=== PATIENT | male | born 1960 | race Caucasian/White ===

== ENCOUNTER 2017-01-01 10:01 | Emergency (ER) | payer MEDICAID, OTHER ==
[~2017-01-01] VITALS: Ht 182.9 cm; Wt 104.3 kg
[2017-01-01] MEDS ORDERED: CITA20TA4 PO (10:16)
[2017-01-01] MEDS ORDERED: ZANTTAB PO (10:16)
[2017-01-01] MEDS ORDERED: OMEP40CA2 PO (10:16)
[2017-01-01] MEDS ORDERED: HYDR25T PO (10:16)
[2017-01-01] MEDS ORDERED: CYCL10TA PO (10:16)
[2017-01-01] MEDS ORDERED: LISI40TAB PO (10:16)
[2017-01-01] MEDS ORDERED: ASPI81TA85 PO (10:16)
[2017-01-01 11:33] LABS: ADD MORPHOLOGY? YES; BASO # 0.1 K/mm3 (0.0-0.2); BASO % 0.8 % (0.0-1.0); EOS # 0.2 K/mm3 (0.0-0.50); EOS % 1.9 % (0.0-3.0); LARGE UNSTAINED CELL # 0.2 K/mm3 (0.0-0.4); LARGE UNSTAINED CELL % 2.4 % (0.0-4.0); LYMPH # 1.4 K/mm3 (1.5-4.5); LYMPH % 15.7 % (24.0-44.0); MEAN CORPUSCULAR HEMOGLOBIN 20.9 pg (27.0-33.0); MEAN CORPUSCULAR HGB CONC 29.7 g/dl (32.0-36.5); MEAN CORPUSCULAR VOLUME 70.3 fl (80.0-96.0); MONO # 0.6 K/mm3 (0.0-0.8); MONO % 6.5 % (0.0-5.0); NEUTROPHILS # 6.3 K/mm3 (1.8-7.7); NEUTROPHILS % 72.8 % (36.0-66.0); PLATELET COUNT, AUTOMATED 369 k/mm3 (150-450); RED CELL DISTRIBUTION WIDTH 16.6 % (11.5-14.5); WHITE BLOOD COUNT 8.7 K/mm3 (4.0-10.0)
--- NOTE | 2017-01-01 11:55 | REP ---
ABDOMEN, FLAT AND UPRIGHT; PA CHEST, THREE VIEWS: HISTORY: Left upper quadrant pain. Air is present in small and large intestine. There are no air fluid levels or dilated loops of intestine. There is no pneumoperitoneum. The lungs are clear. IMPRESSION: Nonspecific bowel gas pattern. Signed by Hussain Copeland MD 01/01/2017 11:58 A
[2017-01-01 11:56] LABS: CALCIUM LEVEL 9.2 MG/DL (8.5-10.1); CREATININE FOR GFR 1.62 MG/DL (0.70-1.30); GLOMERULAR FILTRATION RATE 47.3 (>56)
[2017-01-01 11:57] LABS: ANISOCYTOSIS 1+; HYPOCHROMASIA 1+; MICROCYTOSIS 2+
[2017-01-01] MEDS ORDERED: NS 1,000 ML IV ONE (12:45)
[2017-01-01] MEDS ORDERED: TESS100C PO (14:57)
[2017-01-01 15:17] VITALS: BP 143/96
--- NOTE | 2017-01-02 04:54 | ECGEPIP ---
Stationary ECG Study [facility] - ED Test Date: 2017-01-01 Pat Name: CODY ALCANTARA Department: Room: - Gender: M Molecular Biology Scientist: rn : 1960 Requested By: GERMAINE CARTER PA-C. Order Number: [id number] Reading MD: Sd Lester Measurements Intervals [place] Rate: 109 P: 60 NC: 143 QRS: 79 QRSD: 87 T: 35 QT: 306 QTc: 414 Interpretive Statements SINUS TACHYCARDIA POSSIBLE PRIOR INFERIOR INFARCT NO PRIORS Electronically Signed On 01-02-2017 4:54:43 EDT by Sd Lester
== END 2017-01-01 15:34 | disposition home or self-care (01) ==
LOC: M ED 10:40
DX: S39.011A Strain of muscle, fascia and tendon of abdomen, initial encounter (principal); X58.XXXA Exposure to other specified factors, initial encounter; Y92.9 Unspecified place or not applicable; Y93.9 Activity, unspecified; Y99.9 Unspecified external cause status; R05 Cough; E86.0 Dehydration; F17.200 Nicotine dependence, unspecified, uncomplicated; I95.9 Hypotension, unspecified; J44.9 Chronic obstructive pulmonary disease, unspecified; G47.30 Sleep apnea, unspecified; K21.9 Gastro-esophageal reflux disease without esophagitis; M54.9 Dorsalgia, unspecified; F32.9 Major depressive disorder, single episode, unspecified; Z79.82 Long term (current) use of aspirin; Z79.899 Other long term (current) drug therapy

== ENCOUNTER 2020-03-31 08:29 | Emergency (ER) | payer OTHER ==
[~2020-03-31] VITALS: Ht 182.9 cm; Wt 98.0 kg
[~2020-03-31 08:29] MED LIST: ASPI81TA86 PO; CITA20TA6 PO; CYCL-707 PO; HYDR-3363 PO; LISI40TA PO; OMEP40CA97 PO; TESS100C PO; ZANT150T40 PO
[2020-03-31] MEDS ORDERED: KEFL500C17 PO (08:33)
[2020-03-31] MEDS ORDERED: FAMOTIDINE INJ 20MG/2ML VIAL (S0028 PER 1) IVP ONE (09:15)
[2020-03-31] MEDS ORDERED: diphenhydrAMINE 50MG/ML VIAL (J1200) IV ONE (09:15)
[2020-03-31 09:37] LABS: HEMATOCRIT 44.2 % (42.0-52.0); HEMOGLOBIN 12.5 g/dl (13.5-17.5); MEAN CORPUSCULAR HEMOGLOBIN 20.1 pg (27.0-33.0); MEAN CORPUSCULAR HGB CONC 28.3 g/dl (32.0-36.5); MEAN CORPUSCULAR VOLUME 70.9 fl (80.0-96.0); PLATELET COUNT, AUTOMATED 433 10^3/uL (150-450); RED BLOOD COUNT 6.23 10^6/uL (4.30-6.10); WHITE BLOOD COUNT 9.8 10^3/uL (4.0-10.0)
[2020-03-31 09:59] LABS: ERYTHROCYTE SEDIMENTATION RATE 7 mm/hr (0-20)
[2020-03-31 10:02] LABS: ALBUMIN 3.6 GM/DL (3.2-5.2); BILIRUBIN,DIRECT 0.1 MG/DL (0.0-0.2); BILIRUBIN,TOTAL 0.6 MG/DL (0.2-1.0); C REACTIVE PROTEIN QUANTITATIV 1.46 MG/DL (0.00-0.30); TOTAL PROTEIN 7.7 GM/DL (6.4-8.2)
--- NOTE | 2020-03-31 10:22 | REP ---
CHEST, SINGLE VIEW: There is no evidence of acute infiltrate. No pleural effusion is seen. The heart is normal in size. The mediastinal silhouette is unremarkable. The visualized osseous structures are intact. IMPRESSION: No acute pulmonary disease. Electronically Signed by Papi Oden MD 03/31/2020 11:19 P
[2020-03-31] MEDS ORDERED: dexameTHASONE 20MG/5ML VIAL (J1100 PER 1MG) IV ONE (11:30)
[2020-03-31 14:41] LABS: HEMOGLOBIN A1c 6.4 %
[2020-03-31] MEDS ORDERED: [UNRECOGNIZED DRUG - SUPPLY] (15:07)
[2020-03-31] MEDS ORDERED: PRED20TA PO (15:10)
[2020-03-31] MEDS ORDERED: BENA25CA4 PO (15:11)
[2020-03-31 15:33] VITALS: BP 123/80
== END 2020-03-31 15:38 | disposition home or self-care (01) ==
LOC: M ED 08:29
DX: I87.2 Venous insufficiency (chronic) (peripheral) (principal); E11.9 Type 2 diabetes mellitus without complications; I10 Essential (primary) hypertension; F17.200 Nicotine dependence, unspecified, uncomplicated; Z79.82 Long term (current) use of aspirin; Z79.899 Other long term (current) drug therapy
CPT/HCPCS: 71045; 80047; 80076; 83036; 83880; 85027; 85652; 86140; 87040; 96374; 96375; 99284; J1100; J1200